=== PATIENT | male | born 1950 | race Caucasian/White ===

== ENCOUNTER 2023-12-21 11:42 | Emergency (ER) | payer OTHER, SELFPAY ==
[2023-12-21] VITALS (7 sets, daily range): BP systolic 115–140; BP diastolic 59–76; PULSE 67–96; RESP 16–18; TEMP 36.4; O2SAT 96–98
--- NOTE | ~2023-12-21 | CT_ITS ---
CT of the Abdomen and Pelvis: Indication: Abdominal pain Technique: 2.5 mm axial scans were obtained through the abdomen and pelvis following intravenous adm inistration of 100 cc of Omnipaque 350. Dose reduction technique was used on this scan by utilizing a utomated exposure control and iterative reconstruction technique. The dose-length product (DLP) was 5 48.61 mGy-cm. Findings: Scans through the lung bases are unremarkable. The liver, spleen, pancreas, gallbladder, adrenals and left kidney are within normal limits. There is a 2-3 mm stone at the right UVJ, or possibly just within the urinary bladder, with minimal right hyd roureteronephrosis. No evidence of aortic aneurysm. No lymphadenopathy. No bowel obstruction or bowel wall thickening. There is no evidence to suggest acute appendicitis. Di stal duodenal diverticulum noted. Images through the pelvis were performed. Prostate gland is enlarged. Small fat-containing left ingui nal hernia present. No ascites. Impression: 2-3 mm right UVJ stone, versus stone just within the urinary bladder, with minimal right hydrouretero nephrosis. Enlarged prostate gland. Small fat-containing left inguinal hernia. Reviewed, dictated and finalized at [facility]. Impression: 2-3 mm right UVJ stone, versus stone just within the urinary bladder, with mini mal right hydroureteronephrosis. Enlarged prostate gland. Small fat-containing left inguinal hernia.
[2023-12-21 12:53] LABS: Basophils Percent Auto 0.2 % (0.2-1.2); Eosinophils Absolute Auto 0.1 K/mm3 (0-0.3); Eosinophils Percent Auto 1.4 % (0-4.4); Hematocrit 43.4 % (42.0-52.0); Hemoglobin 14.3 g/dL (14.0-18.0); Immature Granulocyte Absolute 0.06 K/mm3 (0.00-0.031); Immature Granulocyte Percent A 0.7 % (0-0.5); Lymphocytes Absolute Auto 1.21 K/mm3 (0.9-3.2); Lymphocytes Percent Auto 13.9 % (18.3-44.2); Mean Corpuscular HGB Conc 32.9 g/dl (32-36); Mean Corpuscular Hemoglobin 30.8 pg (26-34); Mean Corpuscular Volume 93.5 fl (80-100); Mean Platelet Volume 9.3 fl (7.4-10.4); Monocytes Absolute Auto 0.6 K/mm3 (0.1-0.6); Monocytes Percent Auto 6.9 % (2.6-8.5); Neutrophils Absolute Auto 6.7 K/mm3 (1.3-6.7); Neutrophils Percent Auto 76.9 % (45.5-73.1); Platelet Count Result 270 k/mm3 (150-375); Red Blood Count 4.64 M/mm3 (4.6-6.20); Red Cell Distribution Width 12.8 % (11.5-14.5); White Blood Count 8.7 K/mm3 (4.5-10.0)
[2023-12-21 13:01] LABS: Appearance Urine Clear (Clear); Bilirubin Urine Negative (Negative); Blood Urine Negative (Negative); Color Urine Yellow (Yellow); Glucose Urine UA Negative (Negative); Ketones Urine Trace mg/dL (Negative); Leukocyte Esterase Ur Negative LEU/UL (Negative); Nitrate Urine Negative (Negative); Protein Urine Negative (Negative); Specific Grav Ur 1.023 (1.001-1.035); Urobilinogen Urine 0.2 mg/dL (<2.0)
[2023-12-21 13:03] LABS: Alanine Aminotransferase 27 U/L (6-50); Albumin Level 4.4 g/dL (3.5-5.1); Alkaline Phosphatase 69 U/L (38-126); Anion Gap 11 mmol/L (4-12); Aspartate Amino Transferase 26 U/L (17-59); Bilirubin,Total 0.9 mg/dL (0.2-1.3); Blood Urea Nitrogen 18 mg/dL (9-20); Calcium 8.8 mg/dL (8.4-10.2); Carbon Dioxide 23 mmol/L (22-30); Chloride 104 mmol/L (98-107); Estimated Glomerular Filt Rate > 60; Glucose 145 mg/dL (65-110); Lipase 101 U/L (23-300); Potassium 3.9 mmol/L (3.4-5.0); Sodium 138 mmol/L (137-145)
--- NOTE | 2023-12-21 13:14 | ED.ABDPAIN ---
HPI - Abdominal Pain General Chief Complaint: Abdominal Pain Stated Complaint: abdominal pain Time Seen by Provider: 12/21/23 13:14 Source: patient Mode of arrival: ambulatory Limitations: no limitations History of Present Illness HPI narrative: Patient drove herself to the emergency room complaining of right abdominal pain, radiating to right testicle and right lower back started few hours prior to arrival associated with nausea. He denies any fever, chills, vomiting. History of kidney stone. Related Data Home Medications Medication Instructions Recorded Confirmed atorvastatin 20 mg tablet 20 mg PO DAILY 05/04/20 09/15/20 lisinopril 10 mg tablet 10 mg PO DAILY 05/04/20 09/15/20 Allergies Allergy/AdvReac Type Severity Reaction Status Date / Time No Known Allergies Allergy Unknown Verified 09/14/20 14:29 Review of Systems Review of Systems: All systems reviewed & are unremarkable except as noted in HPI and below PMFSH Past Medical History Medical History Hepatitis A High cholesterol HTN (hypertension) Kidney stone Surgical History Surgical History History of ankle surgery History of hydrocelectomy Family History Family History Father Cerebrovascular accident Mother Alzheimer disease Sibling Alzheimer disease Social History Social History Smoking status: Never smoker Alcohol intake: never Substance use: unknown Living arrangements: with family Occupation/Education: occupation Additional occupation/education comments: surgery department at [employer] Gender identity (if verbalized by the patient): Male Exam Narrative: General appearance: Well-developed, well-nourished Skin: Normal color Head: Normocephalic, nontraumatic Eyes: Clear conjunctiva ENT: Oropharynx normal, ears normal, nose normal Neck: Supple, nontender Chest and respiratory: Airway patent, no respiratory distress, no accessory muscle use Heart: Regular rate/rhythm Abdomen: Soft, mild tenderness right lower quadrant and right lower back, no bruises, no rash no organomegaly, quiet bowel sounds Vascular: Normal peripheral pulses, normal capillary refill. Musculoskeletal: Normal range of motion, nontender back Neurologic: Alert and oriented ?3, [employer] is normal as tested, no gross motor deficit Course Vital Signs Vital signs: Vital Signs Temperature 36.4 C 12/21/23 11:54 Pulse Rate 69 12/21/23 11:54 Respiratory Rate 18 12/21/23 11:54 Blood Pressure 134/62 12/21/23 11:54 Pulse Oximetry 96 12/21/23 11:54 Oxygen Delivery Room Air 12/21/23 11:54 Temperature 36.4 C 12/21/23 11:54 Pulse Rate 96 12/21/23 16:50 Respiratory Rate 16 12/21/23 16:50 Blood Pressure 128/59 L 12/21/23 16:50 Pulse Oximetry 96 12/21/23 16:50 Oxygen Delivery Room Air 12/21/23 11:54 MDM - Abdominal Pain MDM Narrative Medical decision making narrative: Differential diagnosis include pyelonephritis, kidney stone, colitis, constipation, diverticulitis Blood workup today showed insignificant abnormality, urinalysis showed no evidence of infection, CT scan of the abdomen and pelvis showed 2-3 mm right UVJ stone. Currently patient feeling much better after receiving IV fluid and Dilaudid. Patient is ready to go home. Differential Diagnosis Differential diagnosis: Likely other (As above) Medical Records Attestation: I reviewed the patient's medical records. Lab Data Attestation: I reviewed the patient's lab res
[2023-12-21 13:20] LABS: Add Urine Microscopic? NO
[2023-12-21] MEDS: HYDROmorphone HCL INJ (*CRX) 1 MG/ML SYR 0.5 MG IV PUSH (13:42)
[2023-12-21] MEDS: ONDANSETRON INJ 4 MG/2 ML VIAL IV PUSH (13:42)
[2023-12-21] MEDS: SODIUM CHLORIDE 0.9% IV 1,000 ML 999 ML IV CONT (13:43)
[2023-12-21 13:53] LABS: Lactic Acid Reflex 1.6 mmol/L (0.7-2.0)
[2023-12-21 13:54] LABS: Prothrombin Time 13.6 Seconds (11.1-14.7)
[2023-12-21 13:55] LABS: Partial Thromboplastin Time 23.6 Seconds (22.3-36.8)
[2023-12-21] MEDS: TAMSULOSIN HCL 0.4 MG CAPSULE PO (16:46)
== END 2023-12-21 16:50 | disposition home or self-care (01) ==
PROVIDERS: Student in an Organized Health Care Education/Training Program; Emergency Provider Emergency Medicine
DX: N20.0 Calculus of kidney (principal); E78.00 Pure hypercholesterolemia, unspecified; I10 Essential (primary) hypertension; Z87.442 Personal history of urinary calculi; N40.0 Benign prostatic hyperplasia without lower urinary tract symptoms; K40.90 Unilateral inguinal hernia, without obstruction or gangrene, not specified as recurrent
CPT/HCPCS: 36415; 74177; 80053; 81003; 83605; 83690; 85025; 85610; 85730; 96361; 96374; 96375; 99284; A9270; J1170; J2405; J7030; Q9967